=== PATIENT | female | born 1970 | race African-American/Black ===

== ENCOUNTER 2017-10-31 13:33 | Emergency (ER) | payer MEDICAID, OTHER ==
[~2017-10-31] VITALS: Ht 160 cm; Wt 98.0 kg
[~2017-10-31 13:33] MED LIST: ALLO100T PO; CLON0.5T PO; KEPP500 PO; SIMV20TA6 PO
[2017-10-31] MEDS ORDERED: KETOROLAC 60MG/2ML VIAL IM ONE (19:15)
[2017-10-31 19:51] VITALS: BP 171/86
== END 2017-10-31 19:53 | disposition home or self-care (01) ==
LOC: ER 14:10
DX: M54.5 Low back pain (principal); R05 Cough; M10.9 Gout, unspecified; R56.9 Unspecified convulsions; I10 Essential (primary) hypertension; Z88.0 Allergy status to penicillin
CPT/HCPCS: 96372; 99283; J1885

== ENCOUNTER 2017-11-26 18:29 | Emergency (ER) | payer MEDICAID, OTHER ==
[~2017-11-26] VITALS: Ht 162.6 cm; Wt 98.0 kg
[2017-11-26 19:35] VITALS: BP 164/100
== END 2017-11-26 21:42 | disposition home or self-care (01) ==
LOC: ER 20:09
DX: R56.9 Unspecified convulsions (principal); M10.9 Gout, unspecified; Z88.0 Allergy status to penicillin
CPT/HCPCS: 99283